=== PATIENT | female | born 2000 | race Caucasian/White ===

== ENCOUNTER 2021-05-13 14:36 | Emergency (ER) | payer BC ==
[2021-05-13] MEDS ORDERED: ZOFRAN ODT 4 MG4 MG PO (16:33)
== END 2021-05-13 16:41 | disposition home or self-care (01) ==
LOC: ER1 14:36
DX: S09.90XA Unspecified injury of head, initial encounter (principal); R42 Dizziness and giddiness; R11.0 Nausea; W22.8XXA Striking against or struck by other objects, initial encounter
CPT/HCPCS: 70160; 99284

== ENCOUNTER → 2021-05-27 | Outpatient (CLI) | payer BC ==
[~2021-05-27] MED LIST: ZOFRAN ODT 4 MG4 MG PO
[2021-05-27 10:47] LABS: HEMOGLOBIN 13.9 gm/dl (12.3-15.3); RED BLOOD COUNT 4.4 M/UL (4.00-5.10); WHITE BLOOD COUNT 3.9 K/UL (4.5-11.0)
[2021-05-27 11:07] LABS: BUN/CREATININE RATIO 13 (0-10)
[2021-05-28 08:10] LABS: THYROXINE (T4) 7.5 ug/dL (4.5-12.0)
[2021-05-29 15:12] LABS: THYROGLOBULIN ANTIBODY <1.0 IU/mL (0.0-0.9); THYROID PEROXIDASE (TPO) AB <9 IU/mL (0-34)
== END ==
LOC: LAB 10:18
PROVIDERS: Pediatrics
DX: E04.9 Nontoxic goiter, unspecified (principal)
CPT/HCPCS: 80053; 84436; 84443; 85025; 86376; 86800

== ENCOUNTER → 2021-10-11 | Outpatient (CLI) | payer BC | LOC: LAB 16:05 | DX: R30.0 Dysuria (principal) | CPT/HCPCS: 87086 ==

== ENCOUNTER → 2021-12-16 | Outpatient (CLI) | payer BC ==
[2021-12-16 10:23] LABS: HEMOGLOBIN 13.7 gm/dl (12.3-15.3); RED BLOOD COUNT 4.39 M/UL (4.00-5.10); WHITE BLOOD COUNT 5.1 K/UL (4.5-11.0)
[2021-12-17 08:10] LABS: LUTEINIZING HORMONE(LH) 3.1 mIU/mL (.); PROLACTIN 16.4 ng/mL (4.8-23.3)
[2021-12-18 11:11] LABS: INSULIN 9.8 uIU/mL (2.6-24.9)
== END ==
LOC: LAB 10:02
PROVIDERS: Physician Assistant
DX: N92.6 Irregular menstruation, unspecified (principal); N92.0 Excessive and frequent menstruation with regular cycle
CPT/HCPCS: 36415; 82627; 82947; 83001; 83002; 84146; 84402; 84403; 84443; 85025

== ENCOUNTER → 2022-01-12 | Outpatient (CLI) | payer BC | LOC: KOH-I 14:30 | DX: E04.9 Nontoxic goiter, unspecified (principal); E04.1 Nontoxic single thyroid nodule | CPT/HCPCS: 76536 ==